=== PATIENT | female | born 1995 | race Caucasian/White ===

== ENCOUNTER → 2017-03-02 | Outpatient (CLI) | payer OTHER, MEDICAID ==
[~2017-03-02] MED LIST: ACYC200C PO; ALPR1TAB2 PO; BENZ200C25 PO; BIRTH CONTROL PO; CYCL10TA9 PO; NAPR500T PO
[2017-03-02 15:58] LABS: PROTEIN/CREATININE RATIO 0.29
== END ==
LOC: LABNPT 15:19
PROVIDERS: ATTEND Obstetrics & Gynecology
DX: O28.8 Other abnormal findings on antenatal screening of mother (principal); Z3A.00 Weeks of gestation of pregnancy not specified
CPT/HCPCS: 82570; 84156

== ENCOUNTER → 2017-03-06 | Outpatient (CLI) | payer MEDICAID, OTHER ==
[~2017-03-06] MED LIST changes: +CALC-781 PO; +DOCU100C37 PO; +FERR-74 PO; +IBUP-1780 PO; +OXYC-465 PO; +PNV11TAB5 PO; +PREN1TAB86 PO; +RANI-515 PO
[2017-03-06 11:33] LABS: PROTEIN/CREATININE RATIO 0.33
== END ==
LOC: LABNPT 10:48
PROVIDERS: ATTEND Obstetrics & Gynecology
DX: O28.8 Other abnormal findings on antenatal screening of mother (principal); Z3A.00 Weeks of gestation of pregnancy not specified
CPT/HCPCS: 82570; 84156

== ENCOUNTER 2017-03-14 03:40 | Emergency (ER) | payer MEDICAID ==
[~2017-03-14] VITALS: Ht 160 cm; Wt 79.4 kg
--- NOTE | 2017-03-14 04:08 | ED Integumentary General ---
General Chief Complaint: Skin/Wound Problems Stated Complaint: POST OP INCISION CAME OPEN Nursing Triage Note: serosang drainage from incision. Source: patient History of Present Illness Time seen by provider: 03:47 Initial Comments WOKE UP JUST PRIOR TO ARRIVAL TO CHANGE BABY'S DIAPER, AND NOTICED BLOOD COMING FROM INCISION HAD ON Monday03/10/[address] MOORE FOR PRE-ECLAMPSIA. HAS FOLLOW UP APPOINTMENT THIS Monday03/17/17 HAD GABRIELA REMOVED ON MONDAY NO FEVER NO DRAINAGE FROM WOUND PRIOR TO THIS NO INCREASE IN POST OP PAIN HAVING MINIMAL LOCHIA PT IS NOT . HAS HAD INCREASED OVERALL SWELLING SINCE DELIVERY NO CHEST PAIN OR SHORTNESS OF BREATH Allergies and Home Medications Allergies Coded Allergies: No Known Drug Allergies (Unverified , 11/03/14) Home Medications Calcium Carb/Magnesium Hydrox 1 Each Tab.chew, 1 EACH PO PRN, (Reported) Docusate Sodium 100 Mg Capsule, 100 MG PO BID, #60 Prescribed by: CASIMIRO SANDOVAL on 03/12/17 0836 Ferrous Sulfate 325 Mg Tablet, 325 MG PO DAILY@0700, #60 Prescribed by: CASIMIRO SANDOVAL on 03/12/17 0836 Ibuprofen 800 Mg Tablet, 800 MG PO Q6H, #60 Prescribed by: CASIMIRO SANDOVAL on 03/12/17 0836 Oxycodone HCl/Acetaminophen 1 Each Tablet, 1-2 TAB PO Q4HR PRN for PAIN-MODERATE , #60 Prescribed by: CASIMIRO SANDOVAL on 03/12/17 0836 Bub175/FA/Omega3/Dha/Fish Oil 1 Each Tab.chew, 2 EACH PO DAILY, (Reported) Ranitidine HCl 150 Mg Tablet, 150 MG PO BID PRN, (Reported) Constitutional: no symptoms reported Respiratory: no symptoms reported Cardiovascular: no symptoms reported Gastrointestinal: no symptoms reported Genitourinary: no symptoms reported Musculoskeletal: no symptoms reported Skin: see HPI Psychiatric/Neurological: No Symptoms Reported Past Xoghsna-Mkgpdt-Oomogf Hx Patient Social History Alcohol Use: Denies Use Recreational Drug Use: No Smoking Status: Former Smoker Type Used: Cigarettes Recent Foreign Travel: No Contact w/Someone Who Travel: No Recent Infectious Disease Expo: No Recent Hopitalizations: No Immunizations Up To Date Tetanus Booster (TDap): Unknown PED Vaccines UTD: No Seasonal Allergies Seasonal Allergies: No Surgeries HX Surgeries: Yes Surgeries: Section Respiratory Hx Respiratory Disorders: No Cardiovascular Hx Cardiac Disorders: No Neurological Hx Neurological Disorders: No Reproductive System : No Hx : 1 Hx Para: 1 Hx Total # of Abortions (Spona: 0 Hx Reproductive Disorders: No Sexually Transmitted Disease: No HIV/AIDS: No Female Reproductive Disorders: Denies Genitourinary Hx Genitourinary Disorders: No Gastrointestinal Hx Gastrointestinal Disorders: No Musculoskeletal Hx Musculoskeletal Disorders: No Endocrine Hx Endocrine Disorders: No HEENT HX ENT Disorders: No Loss of Vision: Denies Hearing Impairment: Denies Cancer Hx Cancer: No Psychosocial Hx Psychiatric Problems: Yes Behavioral Health Disorders: Anxiety Integumentary HX Skin/Integumentary Disorder: No Blood Transfusions Hx Blood Disorders: Yes (ANEMIA DUE TO AND 03/10/17) Hx of Blood Transfusion YES--POST Adverse Reaction to a Blood Tr: No Family Medical History Significant Family History: No Pertinent Family Hx Family Medial History: Drug abuse 19 MOTHER Neoplasm MATERNAL GRANDMOTHER (LUNG CANCER) Physical Exam Vital Signs Vital Sign - Last 12Hours 03/14/17 03:52 Temp 97.6 Pulse 89 Resp 16 B/P (MAP) 170/105 Pulse Ox 95 O2 Delivery Room Air Capillary Refill : Less Than 3 Seconds General Appearance: WD/WN, no apparent distress, other (MILD GENERALIZED SWELLING TO FACE AND HANDS. ) Cardiovascular: normal peripheral pulses, regular rate, rhythm, no murmur Respiratory: normal breath sounds Gastrointestinal: other (MILD EDEMA TO ABDOMEN. INCISION WITH MIDDLE STERI-STRIPS MISSING. MILD CONSTANT OOZING OF BLOOD FROM 3 MM AREA OF DEHISCENCE JUST TO LEFT OF MIDLINE. NO EVIDENCE OF WOUND INFECTION AT THIS TIME. ) Extremities: pedal edema (2+ EDEMA TO LOWER LEGS) Neurologic/Psychiatric: no motor/sensory deficits, alert Skin: other ( ABOVE) Laceration Repair : Other Closure Supply: Steri Strip 1/2", Wound Adhesive Suture Removal/Wound Recheck : Suture Removal/Wound Recheck: Dry/sterile dressing-appl Progress WOUND CLEANSED AND MASTISOL APPLIED. 1/2 INCH STERI STRIPS APPLIED ABD DRESSING APPLIED. Progress/Results/Core Measures Results/Orders Vital Signs/I&O Vital Sign - Last 12Hours 03/14/17 03:52 Temp 97.6 Pulse 89 Resp 16 B/P (MAP) 170/105 Pulse Ox 95 O2 Delivery Room Air Blood Pressure Mean: 126 Departure Impression Impression: Primary Impression: Wound dehiscence, , condition Disposition: 01 HOME, SELF-CARE Condition: Stable Departure-Patient Inst. Referrals: [facility] (PCP/Family) Primary Care Physician CASIMIRO MOORE MD Patient Instructions: Wound Dehiscence (DC) Add. Discharge Instructions: RESUME ALL POST- INSTRUCTIONS CALL DR. MOORE'S OFFICE TODAY FOR FURTHER INSTRUCTIONS All discharge instructions reviewed with patient and/or family. Voiced understanding. RDAHA VITAL DO Mar 14, 2017 04:08
[2017-03-14 04:29] VITALS: BP 165/90
== END 2017-03-14 04:27 | disposition home or self-care (01) ==
LOC: EDUNIT# 03:40 → ER 03:42
DX: O90.0 Disruption of cesarean delivery wound (principal); O99.345 Other mental disorders complicating the puerperium; F41.9 Anxiety disorder, unspecified; O99.03 Anemia complicating the puerperium; D64.9 Anemia, unspecified; Z87.891 Personal history of nicotine dependence; Z80.1 Family history of malignant neoplasm of trachea, bronchus and lung

== ENCOUNTER 2017-11-16 02:40 | Emergency (ER) | payer OTHER, MEDICAID ==
[~2017-11-16] VITALS: Ht 160 cm; Wt 70.3 kg
[~2017-11-16 02:40] MED LIST changes: -FERR-74 PO; +FERR325T18 PO; +NAPR-1071 PO; -NAPR500T PO
--- NOTE | 2017-11-16 03:18 | ED EENT ---
History of Present Illness General Chief Complaint: Facial Problems Stated Complaint: JAW PAIN,BUMP Nursing Triage Note: PT PRESENTS TO ER WITH COMPLAINT OF LEFT JAW SWELLING AND PAIN. STATES SHE FEELS LIKE IT IS A KNOT. Source: patient Exam Limitations: no limitations History of Present Illness Date Seen by Provider: Nov 16, 2017 Time Seen by Provider: 03:00 Initial Comments The patient presents to the ER by private conveyance with a chief complaint that for the last couple days she's noticed a small nodule under her posterior left jaw. It rolls easily and is sometimes a little tender when he gets pains but does not hurt. She says last week she had runny nose and a little light cold but no fevers chills nausea weight loss or weight gain. She is presently on her period. She denies any ear pain, nasal discharge, facial pain. She does not have any dental pain although she did have her wisdom teeth pulled about a month ago. She has no history of thyroid disorder and does not follow with a primary care physician. Allergies and Home Medications Allergies Coded Allergies: No Known Drug Allergies (Unverified , 11/03/14) Patient Home Medication List Home Medication List Reviewed: Yes Review of Systems Constitutional: No chills, No fever, No malaise, No weakness, No weight gain, No weight loss Eyes: Denies Blindness, Denies Blurred Vision, Denies Drainage Ears: Denies Dizziness, Denies Pain, Denies Bloody Discharge, Denies Clear Discharge, Denies Purulent Discharge Nose: denies clots, denies congestion, denies epistaxis, denies pain Mouth: denies clots, denies loose teeth, denies pain Throat: denies pain, denies swelling, denies discharge Respiratory: No cough, No wheezing Cardiovascular: No chest pain, No edema Gastrointestinal: No abdominal pain, No constipation, No nausea Past Cnjxzel-Rscodp-Qzqhqz Hx Patient Social History Alcohol Use: Denies Use Recreational Drug Use: No Smoking Status: Former Smoker Type Used: Cigarettes Former Smoker, Quit: May 06, 2016 Recent Foreign Travel: No Contact w/Someone Who Travel: No Recent Infectious Disease Expo: No Recent Hopitalizations: No Immunizations Up To Date Tetanus Booster (TDap): Unknown PED Vaccines UTD: No Seasonal Allergies Seasonal Allergies: No Past Medical History Surgeries: Yes Section Respiratory: No Cardiac: No Neurological: No Reproductive Disorders: No Female Reproductive Disorders: Denies Sexually Transmitted Disease: No HIV/AIDS: No Genitourinary: No Gastrointestinal: No Musculoskeletal: No Endocrine: No HEENT: No Loss of Vision: Denies Hearing Impairment: Denies Cancer: No Psychosocial: Yes Anxiety Integumentary: No Blood Disorders: No Adverse Reaction/Blood Tranf: No Family Medical History Drug abuse 19 MOTHER Neoplasm MATERNAL GRANDMOTHER (LUNG CANCER) No Pertinent Family Hx Physical Exam Vital Signs Vital Signs - First Documented 11/16/17 02:53 Temp 98.5 Pulse 88 Resp 20 B/P (MAP) 109/63 (78) Pulse Ox 100 O2 Delivery Room Air General Appearance: WD/WN, no apparent distress Eyes: bilateral eye normal inspection, bilateral eye PERRL, bilateral eye EOMI Ears: bilateral ear auricle normal, bilateral ear canal normal, bilateral ear TM normal Nose: normal inspection, active bleeding, discharge Mouth/Throat: normal mouth inspection, pharynx normal; No dental tenderness, No excessive drooling, No foreign body, No mandibular swelling, No maxillary swelling, No pharynx swelling, No pharynx tenderness Neck: non-tender, full range of motion, supple, normal inspection, lymphadenopathy (L) (solitary 1 cm soft, rubbery, none fixed, nontender, nonerythematous mass palpable in medial to the inferior rami of the mandible consistent with an insignificant lymph node.) Cardiovascular: normal peripheral pulses, regular rate, rhythm Respiratory: chest non-tender, lungs clear, no respiratory distress, no accessory muscle use Progress/Results/Core Measures Vital Signs/I&O 11/16/17 02:53 Temp 98.5 Pulse 88 Resp 20 B/P (MAP) 109/63 (78) Pulse Ox 100 O2 Delivery Room Air Blood Pressure Mean: 78 Progress Note : Time: 03:16 Progress Note Counseled her to leave it alone and follow-up if it doesn't go away in a week or 2 with a primary care physician. If it gets larger she can follow-up sooner. Departure Impression Primary Impression: Lymph node enlargement Disposition: 01 HOME, SELF-CARE Condition: Stable Departure-Patient Inst. Decision time for Depature: 03:16 Referrals: [facility] (PCP/Family) Primary Care Physician Patient Instructions: LYMPH NODE SWELLING Add. Discharge Instructions: Your submandibular swollen lymph node at this time is not worrisome. If it grows larger or does not go away in a few weeks on its own with you leaving it alone then you can follow-up with a primary care provider to have it further evaluated and consider ultrasound. If it starts to hurt a little this is not unusual and can be treated with Tylenol 1000 mg every 8 hours, ibuprofen 800 mg every 8 hours and/or a warm compress applied directly over the jaw. All discharge instructions reviewed with patient and/or family. Voiced understanding. Copy Copies To 1: MILIND BURGESS TITUS J Nov 16, 2017 03:18
[2017-11-16 03:31] VITALS: BP 109/63
--- OUTSIDE RECORDS SUMMARY | 2017-11-16 12:31 | XMS REPORT ---
Author Author MILIND BURGESS [facility] Address [address] [place] [address] Care Team Providers Care Net Technical Architect Name Role Phone MILIND BURGESS Unavailable PROBLEMS Type Condition ICD9-CM Code QWW95-SE Code Onset Dates Condition Status SNOMED Code Problem History of migraine Z86.69 Active 710210896 Problem General medical exam Z00.00 Active 570244389 Problem Oral contraceptive pill surveillance Z30.41 Active 836525194 Problem Allergic rhinitis, unspecified allergic rhinitis trigger, unspecified rhinitis seasonality J30.9 Active 85672204 Problem Cough R05 Active 63853321 Problem Encounter for routine gynecological examination with Papanicolaou smear of cervix Z01.419 Active 157087350 Problem Contraceptive surveillance Z30.40 Active 453778642 Problem Exposure to mold Z77.120 Active 009909491 Problem Dental examination Z01.20 Active 650233252 ALLERGIES No Known Allergies SOCIAL HISTORY No smoking Hx information available PLAN OF CARE VITAL SIGNS MEDICATIONS No Known Medications RESULTS Name Result Date Reference Range TEST, URINE (IN HOUSE) 2016-08-08 RESULTS POSITIVE Lot # [id number] Control + Exp date PROCEDURES Procedure Date Ordered Related Diagnosis Body Site URINE TEST Aug 08, 2016 IMMUNIZATIONS No Known Immunizations
--- OUTSIDE RECORDS SUMMARY | 2017-11-16 12:31 | XMS REPORT ---
Author Author JEAN RENAE Organization [facility] Address [address] [place] [address] Care Team Providers Care Venetian Blind Cleaner And Repairer Name Role Phone JEAN RENAE Unavailable PROBLEMS Type Condition ICD9-CM Code [id number] Code Onset Dates Condition Status SNOMED Code Problem Oral contraceptive pill surveillance Z30.41 Active 768451375 Problem General medical exam Z00.00 Active 070496412 Problem History of migraine Z86.69 Active 832700819 Problem Cough R05 Active 05992615 Problem Exposure to mold Z77.120 Active 820510953 Problem Encounter for routine gynecological examination with Papanicolaou smear of cervix Z01.419 Active 075750189 Problem Contraceptive surveillance Z30.40 Active 322163372 Problem Allergic rhinitis, unspecified allergic rhinitis trigger, unspecified rhinitis seasonality J30.9 Active 40124749 Problem Dental examination Z01.20 Active 167370971 ALLERGIES Substance Reaction Event Type Date Status Prozac Unknown Drug Allergy 16 Sep, 2016 Active Lexapro nausea Drug Allergy 16 Sep, 2016 Active SOCIAL HISTORY Never Assessed PLAN OF CARE Activity Details Follow Up prn Reason: VITAL SIGNS Height 64 in 2016-09-22 Weight 161 lbs 2016-09-22 Temperature 98.9 degrees Fahrenheit 2016-09-22 Heart Rate 100 bpm 2016-09-22 Respiratory Rate 18 2016-09-22 BMI 27.63 kg/m2 2016-09-22 Blood pressure systolic 100 mmHg 2016-09-22 Blood pressure diastolic 60 mmHg 2016-09-22 MEDICATIONS No Known Medications RESULTS No Results PROCEDURES No Known procedures IMMUNIZATIONS No Known Immunizations MEDICAL (GENERAL) HISTORY Type Description Date Medical History Bronchitis Medical History Anxiety
--- OUTSIDE RECORDS SUMMARY | 2017-11-16 12:32 | XMS REPORT ---
Author Author MILIDN BURGESS [facility] eClinical[employer] Address Unknown Phone Unavailable Care Team Providers Care Show Worker Name Role Phone MILIND BURGESS CP Unavailable Allergies No Known Allergies Problems Problem Type Condition Code Onset Dates Condition Status Problem History of migraine Z86.69 Active Problem Oral contraceptive pill surveillance Z30.41 Active Medications No Known Medications Vital Signs Date/Time: November 28, 2015 Blood Pressure Systolic 130 mmHg Cardiac Monitoring Heart Rate 64 bpm Height 64 in Blood Pressure Diastolic 82 mmHg Results No Known Results Summary Purpose eClinicalWorks Submission
--- OUTSIDE RECORDS SUMMARY | 2017-11-16 12:32 | XMS REPORT ---
Author Author IRINA SEPULVEDA [facility] eClinical[employer] Address Unknown Phone Unavailable Care Team Providers Care Director Of Graduate Admissions Name Role Phone IRINA SEPULVEDA CP Unavailable Allergies, Adverse Reactions, Alerts Substance Reaction Event Type Lexapro nausea Drug Allergy Problems Problem Type Condition Code Onset Dates Condition Status Assessment Contusion of right hand S60.221A Active Medications Medication Code System Code Instructions Start Date End Date Status Dosage Apri [facility] [address]-20 0.15-30 MG-MCG Orally Once a day Jun 26, 2014 1 tablet Procedures Procedure Coding System Code Date Office Visit, Est Pt., Level 3 CPT-4 35006 Aug 10, 2015 X-RAY EXAM OF HAND CPT-4 84834 Aug 10, 2015 Vital Signs Date/Time: Aug 10, 2015 Temperature 98.0 F Weight 154.5 lbs Height 64 in BMI 26.52 Index Blood Pressure Diastolic 80 mmHg Blood Pressure Systolic 112 mmHg Cardiac Monitoring Heart Rate 72 bpm Results No Known Results Summary Purpose eClinicalWorks Submission
--- OUTSIDE RECORDS SUMMARY | 2017-11-16 12:32 | XMS REPORT ---
Author Author MILIND BURGESS [facility] eClinical[employer] Address Unknown Phone Unavailable Care Team Providers Care Breakdown Worker Name Role Phone MILIND BURGESS CP Unavailable Allergies No Known Allergies Problems Problem Type Condition Code Onset Dates Condition Status Problem Other acne 706.1 Active Problem General counseling for prescription of oral contraceptives V25.01 Active Problem Anxiety and depression 300.4 Active Problem Acute pharyngitis 462 Active Problem Other malaise and fatigue 780.79 Active Problem Abnormal weight gain 783.1 Active Medications Medication Code System Code Instructions Start Date End Date Status Dosage Apri [facility] [id number] 0.15-30 MG-MCG Orally Once a day Jun 26, 2014 1 tablet Results No Known Results Summary Purpose eClinicalWorks Submission
--- OUTSIDE RECORDS SUMMARY | 2017-11-16 12:32 | XMS REPORT ---
Author Author NANDA HUYNH [facility] eClinicalWorks Address Unknown Phone Unavailable Care Team Providers Care Material Requisitioner Name Role Phone NANDA HUYNH CP Unavailable Allergies, Adverse Reactions, Alerts Substance Reaction Event Type Prozac Info Not Available Drug Allergy Lexapro nausea Drug Allergy Problems Problem Type Condition Code Onset Dates Condition Status Problem Encounter for routine gynecological examination with Papanicolaou smear of cervix Z01.419 Active Problem Contraceptive surveillance Z30.40 Active Problem Dental examination Z01.20 Active Problem History of migraine Z86.69 Active Assessment Dental examination Z01.20 Active Problem General medical exam Z00.00 Active Problem Oral contraceptive pill surveillance Z30.41 Active Medications Medication Code System Code Instructions Start Date End Date Status Dosage Apri [facility] [address]-28 0.15-30 MG-MCG Orally Once a day Jun 26, 2014 1 tablet Xanax [facility] [address]-53 1 MG Orally Twice a day 1 tablet Procedures Procedure Coding System Code Date INTRAORL-PERIAPICAL 1 FILM 83125 CPT-4 D0220 February 18, 2016 INTRAORL-PERIAPICAL EA ADD FILM CPT-4 D0230 February 18, 2016 COMP ORAL EVALUATION - NEW/EST PT CPT-4 D0150 February 18, 2016 BITEWINGS - FOUR FILMS CPT-4 D0274 February 18, 2016 INTRAORL-PERIAPICAL EA ADD FILM CPT-4 D0230 February 18, 2016 PROPHYLAXIS - ADULT CPT-4 D1110 February 18, 2016 PANORAMIC FILM SEE ALSO CODE 50185 CPT-4 D0330 February 18, 2016 Vital Signs Date/Time: February 18, 2016 Blood Pressure Diastolic 70 mmHg Blood Pressure Systolic 116 mmHg Results No Known Results Summary Purpose eClinicalWorks Submission
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
--- OUTSIDE RECORDS SUMMARY | 2017-11-16 12:33 | XMS REPORT ---
Author Author KIRILL AGUERO [facility] Address [address] [place] [address] Care Team Providers Care Cardiology Technologist Name Role Phone KIRILL AGUERO Unavailable PROBLEMS Type Condition ICD9-CM Code LPQ42-DV Code Onset Dates Condition Status SNOMED Code Problem Oral contraceptive pill surveillance Z30.41 Active 829806290 Problem General medical exam Z00.00 Active 966048249 Problem History of migraine Z86.69 Active 896128664 Problem Cough R05 Active 08895432 Problem Exposure to mold Z77.120 Active 936510711 Problem Encounter for routine gynecological examination with Papanicolaou smear of cervix Z01.419 Active 540318567 Problem Contraceptive surveillance Z30.40 Active 296318858 Problem Allergic rhinitis, unspecified allergic rhinitis trigger, unspecified rhinitis seasonality J30.9 Active 11408580 Problem Dental examination Z01.20 Active 160246429 ALLERGIES Substance Reaction Event Type Date Status Prozac Unknown Drug Allergy Aug, Active Lexapro nausea Drug Allergy 05 Aug, 2016 Active SOCIAL HISTORY No smoking Hx information available PLAN OF CARE Activity Details Follow Up OB Reason: VITAL SIGNS Height 64 in 2016-08-11 Weight 156.6 lbs 2016-08-11 Temperature 97.7 degrees Fahrenheit 2016-08-11 Heart Rate 78 bpm 2016-08-11 Respiratory Rate 18 2016-08-11 BMI 26.88 kg/m2 2016-08-11 Blood pressure systolic 118 mmHg 2016-08-11 Blood pressure diastolic 68 mmHg 2016-08-11 MEDICATIONS No Known Medications RESULTS No Results PROCEDURES Procedure Date Ordered Related Diagnosis Body Site Office Visit, Est Pt., Level 4 Aug 11, 2016 IMMUNIZATIONS No Known Immunizations
== END 2017-11-16 03:31 | disposition home or self-care (01) ==
LOC: EDUNIT# 02:40 → ER 02:44
DX: R59.9 Enlarged lymph nodes, unspecified (principal); F41.9 Anxiety disorder, unspecified; Z87.891 Personal history of nicotine dependence; Z87.59 Personal history of other complications of pregnancy, childbirth and the puerperium
CPT/HCPCS: 99282

== ENCOUNTER → 2018-06-25 | Outpatient (CLI) | payer OTHER, MEDICAID ==
--- NOTE | 2018-06-25 12:58 | Diagnostic Imaging Report ---
INDICATION: survey. TECHNIQUE: Multiple real-time grayscale images were obtained over the gravid uterus. COMPARISON: There are no prior studies available for comparison. FINDINGS: There is a single live fetus in cephalic presentation. heart motion was noted, and a rate of 147 BPM was recorded. There were no abnormalities noted. The growth parameters are fairly uniform. The placenta is anterior, and there is no previa. The amniotic fluid volume is within normal limits. The cervix was identified and measures 4.6 cm in length. IMPRESSION: 1. There is a single live fetus of approximately 19 weeks 5 days gestation, +/-1.5 weeks. The EDC is November 14, 2018. 2. There were no abnormalities identified. 3. The growth parameters are fairly uniform. Biometrical measurements are as follows: Biparietal 4.5 cm, age 19 weeks 4 days. Head circumference 16.94 cm, age 19 weeks 4 days. Abdominal circumference 14.3 cm, age 19 weeks 5 days. Femur length 3.2 cm, age 20 weeks 0 days. Sonographic estimate age: 19 weeks 5 days. Sonographic estimated date of delivery: 11/13/18. Estimated Weight: 310 gm (+/- 45 gm). LMP percentile: 38%. heart rate: 147 beats per minute. number: 1 of 1. Dictated by: Dictated on workstation # [id number]
== END ==
LOC: RAD 09:58
PROVIDERS: ATTEND Obstetrics & Gynecology
DX: Z36.89 Encounter for other specified antenatal screening (principal); Z3A.19 19 weeks gestation of pregnancy
CPT/HCPCS: 76805

== ENCOUNTER → 2020-10-26 | Outpatient (CLI) | payer MEDICAID, OTHER ==
[~2020-10-26] MED LIST changes: -OXYC-465 PO; +OXYC-556 PO; -RANI-515 PO; +RANI-609 PO
== END ==
LOC: LAB 16:29
PROVIDERS: ATTEND Obstetrics & Gynecology
DX: Z32.00 Encounter for pregnancy test, result unknown (principal)
CPT/HCPCS: 36415; 84702

== ENCOUNTER → 2020-10-29 | Outpatient (CLI) | payer MEDICAID | LOC: CANPRECLI → LAB 16:42 ==

== ENCOUNTER → 2020-11-04 | Outpatient (CLI) | payer MEDICAID | LOC: LAB 16:11 | PROVIDERS: ATTEND Obstetrics & Gynecology | DX: Z32.00 Encounter for pregnancy test, result unknown (principal) | CPT/HCPCS: 36415; 84702 ==

== ENCOUNTER 2022-10-05 05:31 | Outpatient (CLI) | payer MEDICAID ==
[~2022-10-05] VITALS: Ht 157.5 cm; Wt 75.0 kg
[~2022-10-05 05:31] MED LIST changes: +CYCL10TA25 PO; -CYCL10TA9 PO
== END 2022-10-06 15:46 | disposition home or self-care (01) ==
LOC: PREOP 05:31
PROVIDERS: ATTEND Surgery
DX: Z01.818 Encounter for other preprocedural examination (principal)

== ENCOUNTER 2022-10-12 08:37 | Day surgery (SDC) | payer MEDICAID ==
[~2022-10-12] VITALS: Ht 157 cm; Wt 75.0 kg
[2022-10-12] VITALS (10 sets, daily range): BP systolic 81–118; BP diastolic 41–78
--- NOTE | 2022-10-12 09:00 | Progress Note-Pre Operative ---
Pre-Operative Progress Note Date of Available H&P: Sep 22, 2022 Date H&P Reviewed: Oct 12, 2022 Time H&P Reviewed: 08:53 History & Physical: H&P Reviewed, Patient Examed, No changes noted Pre-Operative Diagnosis: External hemorrhoidal skin tag ARI PABON DO Oct 12, 2022 09:00
[2022-10-12] MEDS ORDERED: fentaNYL INJ 100 MCG/2 ML AMP ONE (09:03)
[2022-10-12] MEDS ORDERED: BUP/EPI 0.5% 1:200,000 (SENSORCAINE) 30 ML VIAL ONE (09:03)
[2022-10-12] MEDS ORDERED: MIDAZOLAM 2 MG/2 ML (VERSED) VIAL ONE (09:03)
[2022-10-12] MEDS ORDERED: ONDANSETRON 4 MG/2 ML (SDV) Z0FRAN ONE (09:03)
[2022-10-12] MEDS ORDERED: proPOfol 200 MG/20 ML (DIPRIVAN) VIAL IV ONE (09:03)
[2022-10-12] MEDS ORDERED: LIDOCAINE PF 2% 5 ML (XYLOCAINE) VIAL ONE (09:03)
[2022-10-12] MEDS ORDERED: ceFAZolin INJECTION 2,000 MG ONE (09:08)
[2022-10-12] MEDS ORDERED: NS (IVPB) 50 ML ONE (09:09)
[2022-10-12] MEDS ORDERED: ceFAZolin INJECTION 2,000 MG in NS (IVPB) 50 ML IV ONE (09:30)
[2022-10-12] MEDS ORDERED: LACTATED RINGERS 1,000 ML IV PRN (09:30)
--- NOTE | 2022-10-12 09:34 | Progress Note-Post Operative ---
Post-Operative Progess Note Surgeon (s)/Chemical Economist (s) Surgeon ARI PABON DO Chemical Economist: RAMONITA Arceo Pre-Operative Diagnosis External hemorrhoidal skin tag Post-Operative Diagnosis same Procedure & Operative Findings Date of Procedure 10/12/22 Procedure Performed/Findings Excision of External Hemorrhoid Anesthesia Type LMA Estimated Blood Loss Estimated blood loss (mL): scant Specimens/Packing Specimens Removed ext hemorrhoid ARI PABON DO Oct 12, 2022 09:34
[2022-10-12] MEDS ORDERED: SEVOFLURANE (ULTANE) 15 ML INHAL SOLN ONE (09:35)
--- NOTE | 2022-10-12 09:36 | Discharge Inst-Surgical ---
Discharge Inst-Surgical Depart Medication/Instructions New, Converted or Re-Newed RX: Other (use tylenol or Ibuproren at home) Patient Instructions Follow up Appt: Make appointment for 1 week. [phone] Instructions: No lifting greater than 20 pounds. No strenuous activity. May shower in 24 hours, no tub bath or soaking. Use incentive spirometer at home as directed. No Smoking Skin/Wound Care: May remove bandages as soon as you have to go to the bathroom. You need to leave the sutures in place, they will fall off on their own. Symptoms to Report: Appetite Changes, Extremity Discoloration, Numbness/Tingling, Swelling Increased, Bleeding Excessive, Eyesight Changes, Pain Increased, Urine Color Change, Constipation(Persistent), Fever over 101 degree F, Pain/Pressure in chest, Urinating Difficulty, Cough Up/Vomit Blood, Heart Beat Irreg/Pounding, Pain/Pressure in jaw, Cramps in feet or legs, Lightheadedness, Pain/Pressure in shoulder, Diarrhea(Persistent), Memory Changes Suddenly, Questions/Concerns, Weight gain consecutive days, Dizziness/Fainting, Nausea/Vomiting, Shortness of Breath, Weight gain over 2 pounds If questions or concerns contact your physician Or seek help at emergency department. Activity Activity as Tolerated: Yes Activity Instructions: Avoid Stress to Incision Diet Discharge Diet: No Restrictions (increase fluids) Diet After 24 Hours: Clear Liquid if Nauseous If Any Problems/Questions/Issu: Contact Your Physician, Go to Emergency Room Skin/Wound Care Infection Signs and Symptoms: Increased Redness, Foul Odor of Wound, Increased Drainage, Skin Itchy or Has a Rash, Increased Swelling, Temperature Above 101 F Wound Care Comment: Sitz baths will help with pain Bathing Instructions: Shower Stitches/Shilo/Dermabond Dis: Care of Stitches ARI PABON DO Oct 12, 2022 09:36
[2022-10-12] MEDS ORDERED: BUP/EPI 0.5% 1:200,000 (SENSORCAINE) 30 ML VIAL INJ ONE (09:45)
[2022-10-12] MEDS ORDERED: morphine INJ 10 MG/ML 1ML (SYR OR VIAL) IVP ONE (09:45)
[2022-10-12] MEDS ORDERED: ONDANSETRON 4 MG/2 ML (SDV) Z0FRAN IVP PRN (09:45)
--- NOTE | 2022-10-12 11:18 | Anesthesia-General Post-Op ---
General Patient Condition Mental Status/LOC: Same as Preop Cardiovascular: Satisfactory Nausea/Vomiting: Absent Respiratory: Satisfactory Pain: Controlled Complications: Absent Post Op Complications Complications None Follow Up Care/Instructions Patient Instructions None needed. Anesthesia/Patient Condition Patient Condition Patient is doing well, no complaints, stable vital signs, no apparent adverse anesthesia problems. No complications reported per nursing. FRANKLIN MCKEE DO Oct 12, 2022 11:18
[2022-10-13] MEDS ORDERED: ACHD5005 PO (10:54)
--- NOTE | 2022-10-13 14:54 | OPERATIVE REPORT ---
DATE OF SERVICE: 10/12/2022 PREOPERATIVE DIAGNOSIS: External hemorrhoid. POSTOPERATIVE DIAGNOSIS: External hemorrhoid. PROCEDURE: Excision of external hemorrhoid. SURGEON: Alexander Holley DO FIELD HOCKEY COACH: Anup Escalante. ANESTHESIA: LMA. SPECIMENS: External hemorrhoid. BLOOD LOSS: Scant. FLUIDS: Per anesthesia. POSTOPERATIVE CONDITION: Stable. INDICATIONS FOR PROCEDURE: The patient is a 27-year-old female who has a large external hemorrhoid that she did not think she could remove in the office and wanted to do this in the OR. FINDINGS: The patient had a large external hemorrhoid that was at the 12 o'clock position when patient was in lithotomy, removed. DESCRIPTION OF PROCEDURE: After informed consent was obtained, the patient was brought to the operating room and placed on the table in lithotomy position. She was sterilely prepped and draped in normal fashion. A digital rectal exam was performed. There was no real internal hemorrhoids. No other obvious pathology and then at this point, I elected to remove this external hemorrhoid. It was at the 12 o'clock position. First did ischial tuberosity blocks and then blocked around this external hemorrhoid with local, then removed this make an incision to cut this off, #15 blade, carried down through the skin into the subcutaneous tissue. Once this was removed, then elected to close this incision with a 2-0 chromic 2 interrupted [id number] sutures. This closed nicely. Area was then cleaned and dried, dressing placed. The patient tolerated the procedure. She was transferred to recovery room in stable condition. Sponge and needle count correct at the end of the case. Job ID: [id number] DocumentID: [id number] Dictated Date: 10/13/2022 12:08:21 Agriculture Internship Date: 10/13/2022 14:51:00 Dictated By: ALEXANDER HOLLEY DO
== END 2022-10-12 11:30 | disposition home or self-care (01) ==
LOC: SDC 08:37
PROVIDERS: ATTEND Surgery
DX: K64.4 Residual hemorrhoidal skin tags (principal)
CPT/HCPCS: 84703; 87081